=== PATIENT | female | born 1970 | race Caucasian/White ===

== ENCOUNTER 2018-02-15 06:10 | Day surgery (SDC) | payer OTHER ==
[~2018-02-15] VITALS: Ht 160 cm; Wt 52.3 kg
[~2018-02-15 06:10] MED LIST: BECL10.62 IH; FLUT16H NASAL; SERRAPEPTASE PO; SODIUM CHLORIDE 0.9% 1,000 ML IV ONE
[2018-02-15] MEDS ORDERED: BENZOCAINE 20% 50 MCG/SPRAY 57 GM TP ONE (06:11)
[2018-02-15] MEDS ORDERED: ALBUTEROL SULFATE 2.5 MG/0.5 ML NEB SOLUTION NEB ONE (06:11)
[2018-02-15] MEDS ORDERED: LIDOCAINE HCL 4% 50 ML SOLUTION TP ONE (06:11)
[2018-02-15] MEDS ORDERED: LIDOCAINE HCL 2% 30 ML JELLY TP ONE (06:11)
[2018-02-15] MEDS ORDERED: SODIUM CHLORIDE 0.9% 1,000 ML IV ONE (07:30)
[2018-02-15] MEDS ORDERED: MIDAZOLAM HCL 2 MG/2 ML VIAL ONE (07:55)
[2018-02-15] MEDS ORDERED: FentaNYL CITRATE-PF 100 MCG/2 ML VIAL ONE (07:56)
[2018-02-15] MEDS ORDERED: MethylPREDNISolone SOD SUCC 125 MG/2 ML VIAL IVP ONE (08:45)
[2018-02-15] MEDS ORDERED: MethylPREDNISolone SOD SUCC 125 MG/2 ML VIAL ONE (09:00)
[2018-02-15] MEDS ORDERED: OXYGEN THERAPY IH SCH (20:00)
== END 2018-02-15 09:50 | disposition home or self-care (01) ==
LOC: SURGERY 06:10
PROVIDERS: ATTEND Internal Medicine Critical Care Medicine
DX: J38.4 Edema of larynx (principal); B37.0 Candidal stomatitis; J45.909 Unspecified asthma, uncomplicated; M54.9 Dorsalgia, unspecified; D64.9 Anemia, unspecified; E78.00 Pure hypercholesterolemia, unspecified; Z88.8 Allergy status to other drugs, medicaments and biological substances; Z88.4 Allergy status to anesthetic agent; Z98.51 Tubal ligation status; Z79.899 Other long term (current) drug therapy; Z98.890 Other specified postprocedural states
CPT/HCPCS: 31623; 31624; 71045; 87015; 87070; 87205; 87206; 87220; 88108; J2250; J2930; J3010; J7030